=== PATIENT | female | born 1980 | race Caucasian/White ===

== ENCOUNTER 2021-10-05 09:39 | Emergency (ER) | payer OTHER ==
[~2021-10-05] VITALS: Ht 170.2 cm; Wt 83.0 kg
--- NOTE | 2021-10-05 10:01 | PHYS DOC ---
Past History Past Medical History: Hypertension Smoking: Non-smoker Adult General HPI HPI Patient is a 41-year-old female presenting via POV for chest pain. Onset was 4 days prior without any obvious trauma, ingestion, exposure or known mechanism of injury. Nothing known makes better or worse. She is attempted to take antacid pills without relief in symptoms. Reports pain is dull pressure that is subste rnal in location. Timing of symptoms has waxed and waned. Initial episode lasted approximately 10 minutes and was self-limiting. She has had other intermittent episodes that were less severe in nature that have occurred randomly ever since citing that she has had multiple episodes a day. Episode this morning was the most severe prompting her to come in, reports it has been ongoing for past hour and 7/10 in severity. She has no personal history of cardiac issues, does admit history of kidney disease that subsequently causes her to have a high blood pressure (renal artery stenosis?). Has never had provocative cardiac testing, has never passed out with sports or physical exertion in the past, no family history of early cardiac disease less than 50 years old. Denies tobacco, alcohol or illicit drug use. States she has been at baseline health except for suffering from COVID-19 infection 1 month ago Review of Systems Review of Systems Fourteen body systems of review of systems have been reviewed. See HPI for pertinent positives and negative responses, other erwin all other systems are negative, non-pertinent or non-contributory Physical Exam Physical Exam Constitutional: Well developed, well nourished, no acute distress, non-toxic appearance. HENT: Normocephalic, atraumatic, bilateral external ears normal, oropharynx m oist, no oral exudates, nose normal. Eyes: PERRLA, EOMI, conjunctiva normal, no discharge. Neck: Normal range of motion, no tenderness, supple, no stridor. Cardiovascular: Heart rate regular, sinus rhythm, no murmurs rubs or gallops Lungs & Thorax: Bilateral breath sounds clear to auscultation Abdomen: Bowel sounds normal, soft, no tenderness, no masses, no pulsatile masses. Nonsurgical abdomen, no peritoneal signs Skin: Warm, dry, no erythema, no rash. Back: No tenderness, no CVA tenderness. Extremities: No tenderness, no cyanosis, no clubbing, ROM intact, no edema. Neurologic: Alert and oriented X 3, grossly normal motor & sensory function, no focal deficits noted. Psychologic: Affect normal, judgement normal, mood normal. Current Patient Data Vital Signs Vital Signs Date Time Temp Pulse Resp B/P (MAP) Pulse Ox O2 Delivery O2 Flow Rate FiO2 10/05/21 10:08 98.4 84 16 141/95 (110) 98 Room Air Vital Signs Date Time Temp Pulse Resp B/P (MAP) Pulse Ox O2 Delivery O2 Flow Rate FiO2 10/05/21 10:08 98.4 84 16 141/95 (110) 98 Room Air Lab Results Laboratory Tests Test 10/05/21 11:00 White Blood Count 7.4 x10^3/uL Red Blood Count 3.94 x10^6/uL Hemoglobin 12.5 g/dL Hematocrit 37.0 % Mean Corpuscular Volume 94 fL Mean Corpuscular Hemoglobin 32 pg Mean Corpuscular Hemoglobin Concent 34 g/dL Red Cell Distribution Width 13.1 % Platelet Count 228 x10^3/uL Neutrophils (%) (Auto) 70 % Lymphocytes (%) (Auto) 21 % Monocytes (%) (Auto) 7 % Eosinophils (%) (Auto) 2 % Basophils (%) (Auto) 0 % Neutrophils # (Auto) 5.2 x10^3uL Lymphocytes # (Auto) 1.5 x10^3/uL Monocytes # (Auto) 0.6 x10^3/uL Eosinophils # (Auto) 0.1 x10^3/uL Basophils # (Auto) 0.0 x10^3/uL Sodium Level 135 mmol/L Potassium Level 5.1 mmol/L Chloride Level 104 mmol/L Carbon Dioxide Level 23 mmol/L Anion Gap 8 Blood Urea Nitrogen 28 mg/dL Creatinine 1.2 mg/dL Estimated GFR (Cockcroft-Gault) 49.8 Glucose Level 104 mg/dL Calcium Level 9.1 mg/dL Troponin I High Sensitivity 4 ng/L Current Medications Medications (Trade) Dose Ordered Sig/Dahlia Route PRN Reason Start Time Stop Time Status Last Admin Dose Admin Aspirin (Aspirin Chewable) 162 mg 1X ONCE PO 10/05/21 10:15 10/05/21 10:17 DC 10/05/21 10:24 Iohexol (Omnipaque 350 Mg/ml) 100 ml 1X ONCE IV 10/05/21 10:30 10/05/21 10:31 DC Info (Do NOT chart on this entry -- for MONITORING) 1 each PRN DAILY PRN MC SEE COMMENTS 10/05/21 10:30 10/07/21 10:29 Iohexol (Omnipaque 350 Mg/ml) 100 ml STK-MED ONCE .ROUTE 10/05/21 10:19 10/05/21 10:19 DC EKG EKG EKG ordered and interpreted by myself at 1000 hours as sinus rhythm at 70 bpm, unremarkable intervals, no axis deviation, T wave inversion noted in lead III otherwise no acute ischemic findings, no STEMI Radiology/Procedures Radiology/Procedures EXAM: XR CHEST 1V 10/05/2021 10:03 AM CLINICAL INDICATION: Chest pain COMPARISON: None TECHNIQUE: AP view of the chest FINDINGS: The heart and mediastinum are normal. Lungs are well-expanded and clear. No consolidation, pleural effusion, or pneumothorax. Pulmonary vascularity is normal. The thoracic skeleton is intact. IMPRESSION: Normal chest radiograph. Electronically signed by: Corin Trotter MD (10/05/2021 10:50 AM) [id number] Heart Score C/O Chest Pain: Yes HEART Score for Chest Pain: HEART Score for Chest Pain Response (Comments) Value History Slighlty/Non-Suspicious 0 ECG Normal 0 Age < 45 0 Risk Factors No Risk Factors 0 Troponin < Normal Limit 0 Total 0 Risk Factors: Risk Factors: DM, Current or recent (<one month) smoker, HTN, HLP, family history of CAD, obesity. Risk Scores: Risk Factors: DM, Current or recent (<one month) smoker, HTN, HLP, family history of CAD, obesity. Course & Med Decision Making Course & Med Decision Making ABCs unremarkable HPI physical exam and comprehensive ER work-up nonconcerning for emergent or surgical issues Patient asymptomatic during ER visit today. Discussed heart and PERC scores, disclose little indication for further diagnostic work-up in ER intervention and/or need for hospitalization Patient has good access to primary care physician, advised close follow-up for close outpatient provocative cardiac testing. Return precautions discussed at length prior to ER departure Dragon Disclaimer Dragon Disclaimer This electronic medical record was generated, in whole or in part, using a voice recognition dictation system. PERC Rule for PE PERC Rule for PE Response (Comments) Value Age > 50: No 0 HR > 100: No 0 Sa02 on room air <95%: No 0 Unilateral leg swelling: No 0 Hemoptysis: No 0 Recent surgery or trauma: No 0 Prior PE or DVT: No 0 Hormone use: No 0 Total 0 Departure Departure: Impression: Primary Impression: Chest pain Disposition: HOME / SELF CARE / HOMELESS Condition: STABLE Referrals: NAEEM DAVILA (PCP) Additional Instructions: You were seen for chest pain, likely atypical in nature. Your workup did not show any acute abnormalities today, but does not indicate that you do not have underlying cardiovascular disease. You do need to follow up with your primary doctor and potentially a education trainer for further evaluation and treatment. You should return to the ED if you develop worsening chest pain, shortness of breath, fever, abnormal sweating, leg swelling, or any other new or concerning symptoms. MIGUEL FREIRE DO Oct 05, 2021 10:01
[2021-10-05] MEDS ORDERED: ASPIRIN CHEWABLE 81 MG TABLET. PO ONE (10:15)
[2021-10-05] MEDS ORDERED: IOHEXOL 350 MG/ML 100 ML VIAL. ONE (10:19)
[2021-10-05] MEDS ORDERED: CONTRAST GIVEN. MC PRN (10:30)
[2021-10-05] MEDS ORDERED: IOHEXOL 350 MG/ML 100 ML VIAL. IV ONE (10:30)
--- NOTE | 2021-10-05 10:38 | EKG ---
[address] [address] Test Date: 2021-10-05 Test Time: 09:56:53 Pat Name: PALMIRA ALEMAN Department: Room: Gender: F [employer]: : 1980 Requested By: MIGUEL FREIRE Order Number: [id number] Reading MD: Measurements Intervals [place] Rate: 70 P: 46 [place]: 136 QRS: 41 QRSD: 80 T: 6 QT: 366 QTc: 398 Interpretive Statements SINUS RHYTHM NORMAL ECG RI6.01 No previous ECG available for comparison
--- NOTE | 2021-10-05 10:53 | RAD ---
EXAM: XR CHEST 1V 10/05/2021 10:03 AM CLINICAL INDICATION: Chest pain COMPARISON: None TECHNIQUE: AP view of the chest FINDINGS: The heart and mediastinum are normal. Lungs are well-expanded and clear. No consolidatio n, pleural effusion, or pneumothorax. Pulmonary vascularity is normal. The thoracic skeleton is int act. IMPRESSION: Normal chest radiograph. Electronically signed by: Corin Trotter MD (10/05/2021 10:50 AM) [id number]
[2021-10-05 11:37] LABS: BASO % 0 % (0-3); EOS # 0.1 x10^3/uL (0.0-0.7); EOS % 2 % (0-3); HEMOGLOBIN 12.5 g/dL (12.0-15.5); LYMPH # 1.5 x10^3/uL (1.0-4.8); LYMPH % 21 % (24-48); MEAN CORPUSCULAR HEMOGLOBIN 32 pg (25-35); MEAN CORPUSCULAR HGB CONC 34 g/dL (31-37); MEAN CORPUSCULAR VOLUME 94 fL (79-100); MONO # 0.6 x10^3/uL (0.0-1.1); MONO % 7 % (0-9); NEUT # 5.2 x10^3uL (1.8-7.7); NEUT % 70 % (31-73); PLATELET COUNT 228 x10^3/uL (140-400); RED BLOOD COUNT 3.94 x10^6/uL (3.50-5.40); RED CELL DISTRIBUTION WIDTH 13.1 % (11.5-14.5); WHITE BLOOD COUNT 7.4 x10^3/uL (4.0-11.0)
[2021-10-05 11:38] LABS: CALCIUM 9.1 mg/dL (8.5-10.1); CREATININE 1.2 mg/dL (0.6-1.0); GFR 49.8; POTASSIUM 5.1 mmol/L (3.5-5.1)
[2021-10-05 12:45] VITALS: BP 142/81
== END 2021-10-05 12:50 | disposition home or self-care (01) ==
LOC: ER 09:39
DX: R07.89 Other chest pain (principal); I10 Essential (primary) hypertension
CPT/HCPCS: 36415; 71045; 80048; 84484; 85025; 93005; 99285